=== PATIENT | female | born 1980 ===

== ENCOUNTER 2017-03-13 07:17 | Emergency (ER) | payer MEDICAID, OTHER ==
[2017-03-13 07:25] VITALS: PULSE 60; RESP 14; TEMP 97.8; O2SAT 99
[2017-03-13 07:35] VITALS: BMI 28.3
[2017-03-13] MEDS ORDERED: Sodium Chloride 0.9% 1,000 ML IV STA (08:02)
[2017-03-13] MEDS ORDERED: Morphine 4 MG/ML VIAL ONE (08:17)
[2017-03-13] MEDS ORDERED: Sodium Chloride 0.9% 1,000 ML ONE (08:17)
[2017-03-13 08:29] LABS: RBC URINE 2 /hpf (0-3); URINE BACTERIA RARE (<OCC); URINE BILIRUBIN NEGATIVE (NEGATIVE); URINE BLOOD NEGATIVE (NEGATIVE); URINE COLOR Yellow (YELLOW); URINE GLUCOSE (UA) NORMAL (Normal); URINE KETONE 2+ mg/dL (NEGATIVE); URINE LEUKOCYTE ESTERASE NEG Leu/uL (Negative); URINE PROTEIN NEGATIVE (NEGATIVE); URINE UROBILINOGEN NORMAL mg/dL (0.2-1.0); WBC URINE 1 /hpf (0-5)
[2017-03-13 08:32] LABS: CHLORIDE 107 mmol/L (98-107); POTASSIUM 3.2 mmol/L (3.6-5.2); SODIUM 142 mmol/L (132-148)
--- NOTE | 2017-03-13 08:32 | C.PDOC ---
History Of Present Illness 36 y/o F p/w abdominal pain, vomiting, and diarrhea since last night. Patient states she was in [facility] for cholecystectomy 2 days ago. This was preceded by an ER visit during which she left AMA. She also left the hospital after cholecystectomy AMA without any medication. She states now that she left too early and that she wasn't ready and that she should not have left. Denies fever or dysuria. Time Seen by Provider: 03/13/17 07:48 Chief Complaint (Nursing): Abdominal Pain Past Medical History Vital Signs: Last Vital Signs Temp 97.8 F 03/13/17 07:21 Pulse 60 03/13/17 07:21 Resp 14 03/13/17 07:21 BP 111/73 03/13/17 08:25 Pulse Ox 99 03/13/17 08:32 - Medical History PMH: Anxiety, Fibromyalgia, Kidney Stones, Chronic Kidney Disease Denies: HIV, HTN Surgical History: (x 2) - [facility] Procedures EXCISION OF URETHRA, OPEN APPROACH (05/29/16) EXTRACTION OF POC, LOW CERVICAL, OPEN APPROACH (07/17/15) FLUOROSCOPY OF KIDNEY, URETER & BLADDER USING OTH CONTRAST (03/10/16) INSPECTION OF BLADDER, ENDO (03/10/16) Family History: States: Unknown Family Hx - Social History Hx Tobacco Use: Yes Hx Alcohol Use: No Hx Substance Use: No - Immunization History Hx Tetanus Toxoid Vaccination: No Hx Influenza Vaccination: No Hx Pneumococcal Vaccination: No Review Of Systems Except As Marked, All Systems Reviewed And Found Negative. Constitutional: Negative for: Fever Cardiovascular: Negative for: Chest Pain Physical Exam - Physical Exam Additional Physical Exam Comments: Constitutional: No acute distress. Head: Normocephalic. Atraumatic. Neck: Supple. Cardiovascular: Regular rate. Radial pulse 2+ bilaterally. Chest: No tenderness. Respiratory: Clear to auscultation bilaterally. GI: Soft. Nondistended. Laparoscopy dressings. Mild postoperative tenderness at sites, not in remainder of abdomen. Back: No CVA tenderness. Musculoskeletal: No tenderness or swelling of extremities. Skin: No rash. Neurologic: Alert, no focal deficit. ED Course And Treatment - Laboratory Results Result Diagrams: 03/13/17 08:15 03/13/17 08:15 O2 Sat by Pulse Oximetry: 99 Medical Decision Making Medical Decision Making: Zofran, pain medication, check labs, consult Surgery. Labs unremarkable. Reglan administered as patient continued to have nausea. Patient was then noticed to be gone from the ER. She had removed her own IV catheter and it was left on the stretcher. Disposition - Disposition Disposition: ELOPEMENT - ER ONLY Disposition Time: 09:45 Condition: UNKNOWN - Clinical Impression Clinical Impression: Abdominal pain
[2017-03-13 08:33] LABS: BASO % 0.3 % (0.0-2.0); EOS % 0.1 % (0.0-4.0); HEMATOCRIT 38.1 % (34.0-47.0); LYMPH # 2.2 K/uL (1.0-4.3); LYMPH % 22.3 % (20.0-40.0); MEAN CORPUSCULAR HEMOGLOBIN 32.6 pg (27.0-31.0); MEAN CORPUSCULAR HGB CONC 34.4 g/dL (33.0-37.0); MEAN PLATELET VOLUME 10.3 fL (7.2-11.7); MONO # 0.6 K/uL (0.0-0.8); NRBC % 0.2 % (0.0-2.0); WHITE BLOOD COUNT 9.9 K/uL (4.8-10.8)
[2017-03-13 08:34] LABS: GFR AFRICAN-AMERICAN > 60
[2017-03-13 08:35] LABS: ALB/GLOB RATIO 1.2 (1.0-2.1); ALKALINE PHOSPHATASE 92 U/L (38-126); ALT/SGPT 71 U/L (9-52); AST/SGOT 21 U/L (14-36); BILIRUBIN,TOTAL 0.7 mg/dL (0.2-1.3); BLOOD UREA NITROGEN 4 mg/dL (7-17); CARBON DIOXIDE 22 mmol/L (22-30); GLUCOSE,RANDOM 87 mg/dL (65-105); TOTAL PROTEIN 6.7 g/dL (6.3-8.3)
[2017-03-13 08:36] LABS: CALCIUM 8.2 mg/dl (8.6-10.4)
[2017-03-13 09:04] VITALS: BP 111/73
== END 2017-03-13 10:00 | disposition left against medical advice (07) ==
LOC: C.ER 07:17
DX: R10.9 Unspecified abdominal pain (principal); N18.9 Chronic kidney disease, unspecified; Z90.49 Acquired absence of other specified parts of digestive tract
CPT/HCPCS: 80053; 81001; 83690; 84703; 85025; 96361; 96374; 96375; 99285; J2270; J2405; J2765; J7040